=== PATIENT | female | born 1975 | race Caucasian/White ===

== ENCOUNTER 2017-11-30 12:26 | Emergency (ER) | payer OTHER, SELFPAY ==
[2017-11-30 12:31] VITALS: BP 137/96; PULSE 91; RESP 18; TEMP 35.9; O2SAT 99
--- NOTE | 2017-11-30 13:55 | ED.FEVER ---
HPI - Fever <Anitha Weinstein PA-C - Last Filed: 11/30/17 22:46> General Chief Complaint: Fever Stated Complaint: FEVER,'SOME SORT OF VIRUS' Time Seen by Provider: 11/30/17 13:53 Source: patient Mode of arrival: ambulatory Limitations: no limitations History of Present Illness HPI Narrative: This 42-year-old female states that she mainly came in today at the insistence of her mother and a friend due to ?not better? since treated for a sinus infection at the end of September. She states that she still has ongoing fatigue, sore throat, and has had fever up to 101 at home. She was last seen by her PCP in the last week or so and advised likely a viral infection. Prior to that she was treated for strep throat because of persistent sore throat and fatigue along with the intermittent fever. She is not feeling acutely worse today. She states that she has mildly sore, scratchy throat, persistent sinus congestion but not pain, and ear congestion. She states that she has minimal cough, denies dyspnea, wheeze, or chest pain. She denies any abdominal pain, nausea, or vomiting. No new rash or other symptoms. She states that she does not feel like the sinus infection ever fully resolved. She denies any specific exposures or recent travel. 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 Related Data Home Medications Medication Instructions Recorded Confirmed [CALCIUM C MAGNESIUM] 1 tab PO QDAY #0 07/13/17 bupropion HCl 300 mg PO QDAY #0 07/13/17 duloxetine 40 mg PO QPM #0 07/13/17 ibuprofen [Advil] 400 mg PO PRN PRN #0 07/13/17 topiramate [Topamax] 50 mg PO BID #0 07/13/17 zolmitriptan 5 mg PO PRN PRN #0 07/13/17 buspirone 15 mg PO BID 11/30/17 11/30/17 hydroxyzine HCl 25 mg PO TID PRN 11/30/17 11/30/17 Previous Rx's Medication Instructions Recorded doxycycline monohydrate 100 mg PO Q12H 10 Days #20 cap 11/30/17 Allergies Allergy/AdvReac Type Severity Reaction Status Date / Time Iodine Allergy Mild TOPICAL/SKIN Uncoded 09/22/17 11:54 RASH Review of Systems <UZIEL Nicole Last Filed: 11/30/17 22:46> Review of Systems All systems reviewed & are unremarkable except as noted in HPI and below Exam <UZIEL Nicole Last Filed: 11/30/17 22:46> Narrative Exam Narrative: GENERAL APPEARANCE: Patient sitting comfortably, in no distress. HEAD: Localized right maxillary tenderness EYES: PERRL, EOMI. EARS: Normal auditory canals, TMS intact with normal light reflexes. ORAL CAVITY: Normal oropharynx. THROAT: Erythematous without exudate, +PND NECK/THYROID: Neck supple, full range of motion, small anterior cervical nodes, no posterior nodes LUNGS: Clear to auscultation bilaterally, no cough on exam. HEART: RRR without murmur, nl S1, S2, no S3 or S4. ABDOMEN: Soft, obese, nontender, nondistended, +bowel sounds x4 quadrants, no HSM EXTREMITIES: No cyanosis or edema Initial Vital Signs Initial Vital Signs: Vital Signs Temperature 96.7 F L 11/30/17 12:31 Pulse Rate 91 H 11/30/17 12:31 Respiratory Rate 18 11/30/17 12:31 Blood Pressure 137/96 H 11/30/17 12:31 Pulse Oximetry 99 11/30/17 12:31 <Rancho Rivera DO - Last Filed: 12/06/17 09:00> Initial Vital Signs Initial Vital Signs: Vital Signs Temperature 96.7 F L 11/30/17 12:31 Pulse Rate 91 H 11/30/17 12:31 Respiratory Rate 18 11/30/17 12:31 Blood Pressure 137/96 H 11/30/17 12:31 Pulse Oximetry 99 11/30/17 12:31 Course <UZIEL Nicole Last Filed: 11/30/17 22:46> Vital Signs - 8 hr 11/30/17 14:48 Pulse Rate 80 Respiratory Rate 15 Blood Pressure [Left Arm] 127/88 H Pulse Oximetry 100 <Rancho Rivera DO - Last Filed: 12/06/17 09:00> Vital Signs - 8 hr 11/30/17 14:48 Pulse Rate 80 Respiratory Rate 15 Blood Pressure [Left Arm] 127/88 H Pulse Oximetry 100 Discharge Plan Departure Patient Disposition: Home, Self-Care Clinical Impression: Sinusitis Discharge Date/Time: 11/30/17 14:56 Interventions: ED Discharge Assessment Last Done: 11/30/17 14:56 Instructions: DI for Sinusitis Activity Restrictions/Additional Instructions: You should return if you have any acutely worsening symptoms, however with your sinus infection that you had 6 weeks ago not fully resolving and your pain in the right cheek area on exam, it is reasonable to treat you for a sinus infection that did not fully resolve. I have sent an antibiotic to your pharmacy for you. You should follow up with your PCP, as we talked about if you are not better after this, as you will need further testing. You can work if you aren't feverish, coughing etc. 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 Prescriptions: New doxycycline monohydrate 100 mg capsule 100 mg PO Q12H 10 Days Qty: 20 RF: 0 No Action topiramate [Topamax] 25 MG tablet 50 mg PO BID Qty: 0 RF: 0 bupropion HCl 300 MG tablet extended release 24 hr 300 mg PO QDAY Qty: 0 RF: 0 ibuprofen [Advil] 200 MG tablet 400 mg PO PRN PRNQty: 0 RF: 0 [CALCIUM C MAGNESIUM] 1 tab PO QDAY Qty: 0 RF: 0 zolmitriptan 5 MG tablet,disintegrating 5 mg PO PRN PRNQty: 0 RF: 0 duloxetine 20 MG capsule,delayed release(DR/EC) 40 mg PO QPM Qty: 0 RF: 0 hydroxyzine HCl 25 mg tablet 25 mg PO TID PRN (Reason: Anxiety) RF: 0 buspirone 15 mg tablet 15 mg PO BID RF: 0 Referrals: Ailin Araujo ARNP [Non-Staff] - <aRncho Rivera DO - Last Filed: 12/06/17 09:00> Cosign ED Attending Suni Attestation: I was immediately available in the department for consultation. Documentation has been reviewed. I agree with assessment and plan.
[2017-11-30 14:48] VITALS: BP 127/88; PULSE 80; RESP 15; O2SAT 100
== END 2017-11-30 14:56 | disposition home or self-care (01) ==
PROVIDERS: Emergency Provider Internal Medicine
DX: J01.90 Acute sinusitis, unspecified (principal)
CPT/HCPCS: 99282